=== PATIENT | female | born 1985 | race Two or more races ===

== ENCOUNTER 2020-05-06 17:59 | Emergency (ER) | payer OTHER ==
[2020-05-06 18:16] VITALS: BP 157/84; PULSE 129; TEMP 99.3; BMI 33.1
[2020-05-06] MEDS ORDERED: LIDOCAINE HCL 2% (50ML VIAL) INF ONE (18:27)
[2020-05-06] MEDS ORDERED: LIDOCAINE HCL 2% (20ML MULTI-DOSE VIAL) ONE (18:34)
[2020-05-06] MEDS ORDERED: ACETAMINOPHEN 500 MG TABLET (FP) PO ONE (18:53)
[2020-05-06] MEDS ORDERED: AMOX TR/POT CLAV 875MG/125MG TABLETS (FP) PO ONE (18:53)
[2020-05-06] MEDS ORDERED: ACETAMINOPHEN 500 MG TABLET (FP) ONE (18:55)
[2020-05-06] MEDS ORDERED: AMOX TR/POT CLAV 875MG/125MG TABLETS (FP) ONE (18:56)
== END 2020-05-06 19:02 | disposition home or self-care (01) ==
LOC: FER 17:59
DX: N75.1 Abscess of Bartholin's gland (principal)
CPT/HCPCS: 99283-25